=== PATIENT | female | born 1975 | race African-American/Black ===

== ENCOUNTER 2019-05-29 11:03 | Emergency (ER) | payer MEDICAID ==
[~2019-05-29] VITALS: Ht 172.7 cm; Wt 100.0 kg
--- NOTE | 2019-05-29 11:38 | NUR ---
PT TO ROOM FROM LOBBY.
--- NOTE | 2019-05-29 12:15 | NUR ---
lUNCH RN: PT MEDICATED FOR HTN. LABS DRAWN. TECH AT BEDSIDE FOR EKG. FAMILY AT BEDSIDE. CALL LIGHT WITHIN REACH. AWAITING RESULTS AT THIS TIME
[2019-05-29 12:21] LABS: MEAN CORPUSCULAR HEMOGLOBIN 23.2 pg (27.0-34.8); MEAN CORPUSCULAR HGB CONC 31.7 g/dL (32.4-35.8); MEAN CORPUSCULAR VOLUME 73.3 fL (80-100); PLATELET COUNT 157 x10^3/uL (130-400); RED BLOOD COUNT 4.74 x10^6/uL (3.82-5.3); RED CELL DISTRIBUTION WIDTH 22.5 % (9.6-15.2)
[2019-05-29 12:29] LABS: ALANINE AMINOTRANSFERASE 20 U/L (12-78); ALBUMIN 3.3 g/dL (3.4-5.0); ANION GAP 4 mmol/L (5-15); CALCIUM 8.6 mg/dL (8.5-10.1); CHLORIDE 110 mmol/L (98-107); CREATININE 0.79 mg/dL (0.55-1.02)
[2019-05-29 12:39] LABS: ALKALINE PHOSPHATASE 98 U/L (45-117); BILIRUBIN,TOTAL 0.4 mg/dL (0.2-1.0); TOTAL PROTEIN 7.3 g/dL (6.4-8.2)
[2019-05-29 12:57] LABS: MD YES
[2019-05-29 12:58] LABS: ANISOCYTOSIS 1+; BAND#(MANUAL) 0.05 x10^3/uL; BANDS%(MANUAL) 1 % (0-7); EOS% (MANUAL) 2 % (1-7); LYMPH#(MANUAL) 1.66 x10^3/uL (1-3.4); LYMPHS% (MANUAL) 32 % (22-44); MICROCYTOSIS 1+; MONOS#(MANUAL) 0.36 x10^3/uL (0.3-2.7); MONOS% (MANUAL) 7 % (2-9); POLYCHROMASIA 1+; SEG#(MANUAL) 3.02 x10^3/uL (1.8-6.8); SEGS% (MANUAL) 58 % (42-75)
[2019-05-29 12:59] LABS: <PLATELET ESTIMATE> ADEQUATE; LARGE PLATELETS 1+
--- NOTE | 2019-05-29 13:05 | NUR ---
PT RESTING ON GURNEY, RESPS EVEN AND UNLABORED. PT DENIES PAIN. 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 PT INSTRUCTED TO PROVIDE CLEAN CATCH UA. PT UP TO BATHROOM, GAIT STEADY.
[2019-05-29 13:46] LABS: CULTURE INDICATED? NO; MICROSCOPIC NOT IND
[2019-05-29 14:10] VITALS: BP 148/87
== END 2019-05-29 14:29 | disposition home or self-care (01) ==
LOC: ED 12:36
DX: I10 Essential (primary) hypertension (principal); R42 Dizziness and giddiness; R51 Headache; E03.9 Hypothyroidism, unspecified; F17.200 Nicotine dependence, unspecified, uncomplicated
CPT/HCPCS: 36415; 70450; 80053; 81003; 84436; 84443; 85025; 93005; 99285